=== PATIENT | male | born 1990 | race Caucasian/White ===

== ENCOUNTER → 2025-05-05 | Outpatient (CLI) | payer OTHER ==
[~2025-05-05] MED LIST: 1/2 NS 250ml250 ML; GABA300 MT; HUMALOG100 UNIT/1 SC; IBUP800 PO; INSDET100 SQ; INSULANI SC; Norco 5-325 Ta1 EACH PO; ONDA8ODT MM; OXYACE5T PO
[2025-05-05 19:14] LABS: Chlamydia Trachomatis Urine NOT DETECTED (NOT DETECT); Neisseria Gonorrhoea Urine NOT DETECTED (NOT DETECT)
== END | disposition home or self-care (01) ==
LOC: LAB 15:06 → LAB SHORT 15:06
PROVIDERS: Student in an Organized Health Care Education/Training Program
DX: Z91.89 Other specified personal risk factors, not elsewhere classified (principal)
CPT/HCPCS: 87491; 87591